=== PATIENT | female | born 1975 | race Caucasian/White ===

== ENCOUNTER 2017-03-31 21:49 | Inpatient (IN) | payer SELFPAY ==
[~2017-03-31] VITALS: Ht 162.6 cm; Wt 81.6 kg
[2017-03-31] MEDS: SODIUM CHLORIDE 0.9% 1,000 ML IV ONE
[2017-03-31] MEDS: ONDANSETRON HCL 4MG/2ML VIAL IV STA
[2017-03-31] MEDS: PANTOPRAZOLE SODIUM 40 MG/VIAL IV STA
[2017-03-31] MEDS: MORPHINE SULFATE 4 MG/ML CPJ (NOT FOR IM USE) IV STA
[2017-03-31] MEDS ORDERED: LABETALOL HCL 20MG/4ML CARPUJECT IV ONE (23:00)
[2017-03-31] MEDS ORDERED: OCTREOTIDE ACETATE 50 MCG/ML 1ML IV ONE (23:00)
[2017-03-31 23:22] LABS: BASOPHILS % 0.4 % (0.0-2.0); EOSINOPHILS % 1.8 % (0.0-5.0); HEMOGLOBIN. 11.7 g/dL (12.0-16.0); LYMPHOCYTES % 28.8 % (20.0-50.0); MEAN CORPUSCULAR HEMOGLOBIN 28.4 pg (28.0-32.0); MEAN CORPUSCULAR VOLUME 85.1 fL (81.0-99.0); MEAN PLATELET VOLUME 7.5 fl (7.4-10.4); MONOCYTES % 8.4 % (2.0-8.0); NEUTROPHILS % 60.6 % (40.0-76.0); PLATELET 299 x1000/uL (130-400); RED BLOOD CELL COUNT 4.11 mill/uL (4.2-5.4); RED CELL DISTRIBUTION WIDTH 15.5 % (11.6-14.6)
[2017-03-31 23:31] LABS: PROTHROMBIN TIME 10.5 sec (9.4-11.6)
[2017-03-31 23:39] LABS: CARBON DIOXIDE 22 mEq/L (21-32); CHLORIDE 107 mEq/L (98-107); ETHANOL BLOOD < 10 mg/dL; TROPONIN I < 0.02 ng/mL (0.00-0.04)
[2017-03-31 23:40] LABS: HCG SCREEN NEGATIVE
[2017-04-01] MEDS: ONDANSETRON HCL 4MG/2ML VIAL IV STA
[2017-04-01] MEDS: SODIUM CHLORIDE 0.9% 1,000 ML IV ONE
[2017-04-01] MEDS: PANTOPRAZOLE SODIUM 40 MG/VIAL IV STA
[2017-04-01] MEDS: MORPHINE SULFATE 4 MG/ML CPJ (NOT FOR IM USE) IV STA
[2017-04-01 00:07] LABS: CLARITY URINE CLOUDY (CLEAR); COLOR URINE YELLOW (YELLOW); GLUCOSE URINE NEGATIVE (NEGATIVE); KETONES URINE TRACE (NEGATIVE); LEUKOCYTE ESTERASE URINE NEGATIVE (NEGATIVE); NITRITE URINE NEGATIVE (NEGATIVE); OCCULT BLOOD URINE NEGATIVE (NEGATIVE); PROTEIN URINE NEGATIVE (NEGATIVE); SPECIFIC GRAVITY URINE 1.036 (1.005-1.030); UROBILINOGEN URINE 0.2 E.U./dL (0.2-1.0)
[2017-04-01] MEDS ORDERED: LABETALOL 5MG/ML SYR 20 MG/4 ML SYRINGE IV SCH (00:15)
[2017-04-01 00:58] LABS: *AMPHETAMINES SCREEN URINE NEGATIVE (NEGATIVE); *BARBITURATES SCREEN URINE NEGATIVE (NEGATIVE); *COCAINE SCREEN URINE NEGATIVE (NEGATIVE); CANNABINOID URINE SCREEN NEGATIVE (NEGATIVE); METHADONE URINE SCREEN NEGATIVE (NEGATIVE); OPIATES URINE SCREEN NEGATIVE (NEGATIVE); PHENCYCLIDINE URINE SCREEN NEGATIVE (NEGATIVE)
[2017-04-01 01:07] LABS: *BENZODIAZEPINES SCREEN URINE PRESUMTIVE POSITIVE (NEGATIVE)
[2017-04-01] MEDS ORDERED: HYDRALAZINE 20MG/ML VIAL IV SCH (03:00)
[2017-04-01] MEDS ORDERED: POTASSIUM BICARB/CIT ACID 25 MEQ TABLET.EFF PO SCH (03:42)
[2017-04-01 09:00] VITALS: BP 127/84
[2017-04-01] MEDS ORDERED: TEMA30CA PO (09:03)
[2017-04-01] MEDS ORDERED: TRAM50TA3 PO (09:05)
[2017-04-01] MEDS ORDERED: ZOLP10TA6 PO (09:07)
[2017-04-01] MEDS ORDERED: HYDR-4001 PO (09:08)
[2017-04-01] MEDS ORDERED: AMLODIPINE 5MG TABLET PO ONE (10:00)
[2017-04-01] MEDS ORDERED: AMLODIPINE 5MG TABLET PO SCH (10:15)
[2017-04-01] MEDS ORDERED: IPRATROPIUM/ALBUTEROL 0.5-3(2.5)MG/3ML NEB INH PRN (10:45)
[2017-04-01] MEDS ORDERED: ONDANSETRON HCL 4MG/2ML VIAL IV PRN (10:45)
[2017-04-01] MEDS ORDERED: TRAMADOL 50MG TABLET PO SCH (11:00)
[2017-04-01 12:30] VITALS: BP 129/86
[2017-04-01] MEDS ORDERED: SODIUM CHLORIDE 0.9% INJ 3ML FLUSH IVF SCH (14:00)
[2017-04-01 15:18] VITALS: BP 129/86
== END 2017-04-01 16:50 | disposition home or self-care (01) | DRG 244 ==
LOC: ER 21:49 → 6WST 04-01 03:01 → ENRESERV 04-01 07:32
PROVIDERS: ADMIT Family Medicine; ATTEND Family Medicine
DX: K57.30 Diverticulosis of large intestine without perforation or abscess without bleeding (principal); E27.8 Other specified disorders of adrenal gland; G47.00 Insomnia, unspecified; E03.9 Hypothyroidism, unspecified; D35.02 Benign neoplasm of left adrenal gland; Z90.49 Acquired absence of other specified parts of digestive tract
CPT/HCPCS: 36415; 71010; 74176; 80053; 80305; 81001; 81003; 83605; 83690; 83880; 84484; 84703; 85025; 85610; 96374; 96375; 99291; C9113; G0482; J2270; J2354; J2405; J3490; J7030